=== PATIENT | female | born 1950 | race Caucasian/White ===

== ENCOUNTER 2021-08-09 10:26 | Emergency (ER) | payer BC, MEDICARE ==
--- NOTE | 2021-08-09 11:00 | EDM.PDOC ---
ED HPI GENERAL MEDICAL PROBLEM - General Chief Complaint: General Stated Complaint: diabetic reaction Time Seen by Provider: 08/09/21 10:30 Source of Information: Reports: Patient, Family (daughter Bety) History Limitations: Reports: No Limitations - History of Present Illness INITIAL COMMENTS - FREE TEXT/NARRATIVE: She states that she was fine this AM. She did come from [place] this AM for Craft show. She left there early, Was up about 4 am this morning. She took Sudafed earlier as she has had runny nose. She took lorazapam at [facility] last night. She took a muscle relaxant this Am also as her back was bad. Her Wednesday and she has been with her daughters since then. No history of falls recently. She denies any headache. No unilateral weakness. Family reports this AM she was fine. She started to get weak and not responding as quickly so they thought she was having low blood sugar. She has monitor on but it is broke so they could not check BS. She drank mountain dew and scotcharoo and she didn't respond better as she was more lethargic and sleepy. 911 was called at that time and she was given Narcan and blood sugar was over 300. Currently she states that she feels good but is so tired she can't stay awake. GCS on admit was 15. Onset: Sudden - Related Data Allergies Allergy/AdvReac Type Severity Reaction Status Date / Time No Known Allergies Allergy Verified 08/09/21 10:49 Home Meds: Home Meds Atropine/Diphenoxylate [Diphenoxylate-Atropine] 2.5 mg PO TID PRN 08/09/21 [History] Blood-Glucose Transmitter [Dexcom G6] 08/09/21 [History] Celecoxib 200 mg PO BID 08/09/21 [History] Cetirizine [ZyrTEC] 10 mg PO DAILY 08/09/21 [History] Diclofenac/Kinesiology Tape [Diclo Gel 1%-Xrylix Sheet Kit] 2 gm TOP BID 08/09/21 [History] Dulaglutide [Trulicity] 3 mg SQ WEEKLY 08/09/21 [History] Escitalopram [Lexapro] 20 mg PO DAILY 08/09/21 [History] Flash Glucose [employer] [[employer] Day [employer]] 08/09/21 [History] Fluticasone Furoate [Arnuity Ellipta] 50 mcg INH DAILY 08/09/21 [History] Gabapentin [Neurontin] 300 mg PO TID 08/09/21 [History] Insulin Aspart [Novolog Flexpen] 12 - 50 units SUBCUT TIDMEALS 08/09/21 [History] Insulin Degludec [Tresiba] 50 units SUBCUT DAILY 08/09/21 [History] LORazepam [Ativan] 1 mg PO BEDTIME PRN 08/09/21 [History] Magnesium 500 mg PO BID 08/09/21 [History] Meclizine [Antivert] 25 mg PO Q4H PRN 08/09/21 [History] Triamcinolone Acetonide [Triamcinolone Acetonide 0.5% Oint] 1 applic TOP DAILY PRN 08/09/21 [History] tiZANidine [Zanaflex] 4 mg PO TID 08/09/21 [History] Past Medical History Endocrine/Metabolic History: Reports: Diabetes, Type II Social & Family History - Living Situation & Occupation Living situation: Reports: Occupation: Retired ED ROS GENERAL - Review of Systems Review Of Systems: See Below Constitutional: Reports: Weakness, Fatigue. Denies: Fever, Chills HEENT: Reports: No Symptoms Respiratory: Reports: No Symptoms Cardiovascular: Reports: No Symptoms GI/Abdominal: Reports: No Symptoms : Reports: No Symptoms Musculoskeletal: Reports: No Symptoms Skin: Reports: No Symptoms Neurological: Reports: Other (extremely lethargic) Psychiatric: Reports: No Symptoms ED EXAM, GENERAL - Physical Exam Exam: See Below Exam Limited By: No Limitations General Appearance: Alert, WD/WN, No Apparent Distress Eye Exam: Bilateral Eye: PERRL Ears: Normal External Exam, Normal Canal, Normal TMs Nose: Normal Inspection Throat/Mouth: Normal Inspection, Normal Oropharynx, Normal Voice, No Airway Compromise Head: Atraumatic, Normocephalic Neck: Normal Inspection, Supple, Non-Tender, Full Range of Motion Respiratory/Chest: No Respiratory Distress, Lungs Clear, Normal Breath Sounds Cardiovascular: Normal Peripheral Pulses, Regular Rate, Rhythm, No Edema GI/Abdominal: Normal Bowel Sounds, Soft, Non-Tender, No Organomegaly Back Exam: Normal Inspection Extremities: Normal Inspection, Non-Tender, No Pedal Edema, Normal Capillary Refill Neurological: Alert, Oriented, CN II-XII Intact Skin Exam: Warm, Dry, Intact Course - Vital Signs Last Recorded V/S: Last Vital Signs Temp 96.8 F L 08/09/21 10:34 Pulse 82 08/09/21 10:34 Resp 14 08/09/21 10:34 BP 91/57 L 08/09/21 10:34 Pulse Ox 100 08/09/21 10:34 - Orders/Labs/Meds Orders: Active Orders 24 hr Category Date Time Status Head wo Cont [CT] Stat Exams 08/09/21 11:05 Taken Labs: Laboratory Tests 08/09/21 08/09/21 08/09/21 Range/Units 10:45 10:45 10:46 WBC 10.3 (4.0-11.0) 10^3/uL RBC 3.69 L (4.00-5.50) x10^6/uL Hgb 11.1 L (12.0-16.0) g/dL Hct 33.6 L (37.0-47.0) % MCV 91.1 (83.0-97.0) fL MCH 30.1 (27.0-32.0) pg MCHC 33.0 (32.0-36.0) g/dL RDW Coeff of Bassem 12.0 (11.0-15.0) % Plt Count 331 (150-400) 10^3/uL Immature Gran % (Auto) 0.2 (0.0-4.9) % Neut % (Auto) 73.8 H (41-71) % Lymph % (Auto) 17.0 L (24-44) % [place] % (Auto) 5.9 (0-10) % Eos % (Auto) 2.5 (0-6) % Baso % (Auto) 0.6 (0-1) % Neut # (Auto) 7.57 (1.80-8.00) x10^3/uL Lymph # (Auto) 1.74 (0.60-5.00) 10^3/uL [place] # (Auto) 0.60 (0.00-1.50) 10^3/uL Eos # (Auto) 0.26 (0.00-1.50) 10^3/uL Baso # (Auto) 0.06 (0.00-0.50) 10^3/uL Immature Gran # (Auto) 0.02 (0.00-0.49) 10^3/uL Sodium 133 L (136-145) mEq/L Potassium 4.0 (3.5-5.0) mEq/L Chloride 99 (98-106) mEq/L Carbon Dioxide 26 (21-32) mmol/L BUN 15 (7-18) mg/dL Creatinine 1.3 H (0.6-1.0) mg/dL Est Cr Clr Drug Dosing 33.28 mL/min Estimated GFR (MDRD) 40 L (>=60) mL/min Glucose 366 H* (75-99) mg/dL Calcium 8.3 L (8.4-10.1) mg/dL Urine Color Yellow (YELLOW) Urine Appearance Clear (CLEAR) Urine pH 5.0 (4.5-8.0) Ur Specific [place] >= 1.030 H (1.003-1.020) Urine Protein Negative (NEGATIVE) mg/dL Urine Glucose (UA) Negative (NEGATIVE) mg/dL Urine Ketones Negative (NEGATIVE) mg/dL Urine Occult Blood Negative (NEGATIVE) Urine Nitrite Negative (NEGATIVE) Urine Bilirubin Negative (NEGATIVE) Urine Urobilinogen 0.2 (0.2-1.0) EU/dL Ur Leukocyte Esterase Negative (NEGATIVE) Urine RBC Not seen (0-5) /HPF Urine WBC 0-5 (0-5) /HPF Ur Epithelial Cells Moderate H (NOT SEEN) /HPF Urine Bacteria Moderate H (NOT SEEN) /HPF Urine Mucus Few H (NOT SEEN) /HPF - Re-Assessments/Exams Free Text/Narrative Re-Assessment/Exam: 08/09/21 13:00 In to discuss results of normal labs and CT head. I discussed with pt that I think this is exhaustion and combination of the recent meds that she took. She is feeling better at this time and will discharge when family gets here to pick her up. Departure - Departure Time of Disposition: 13:05 Disposition: Home, Self-Care 01 Condition: Good Clinical Impression: Exhaustion - Discharge Information *PRESCRIPTION DRUG MONITORING PROGRAM REVIEWED*: Not Applicable *COPY OF PRESCRIPTION DRUG MONITORING REPORT IN PATIENT RUDOLPH: Not Applicable Forms: ED Department Discharge Additional Instructions: Drink plenty of fluids avoid any meds that ay cause sedation Get plenty of rest follow up with PCP if any new concerns. Sepsis Event Note (ED) - Evaluation Sepsis Screening Result: No Definite Risk - Focused Exam Vital Signs: Vital Signs Temp Pulse Resp BP Pulse Ox 08/09/21 10:34 96.8 F L 82 14 91/57 L 100 - Problem List Review Problem List Initiated/Reviewed/Updated: Yes - My Orders Last 24 Hours: My Active Orders 08/09/21 11:05 Head wo Cont [CT] Stat - Assessment/Plan Last 24 Hours: My Active Orders 08/09/21 11:05 Head wo Cont [CT] Stat
== END 2021-08-09 15:15 | disposition home or self-care (01) ==
LOC: CC.ED 10:26
DX: R53.83 Other fatigue (principal); E11.9 Type 2 diabetes mellitus without complications; Z79.4 Long term (current) use of insulin
CPT/HCPCS: 36415; 70450; 80048; 81001; 85025; 99285-25